=== PATIENT | male | born 1960 | race Caucasian/White ===

== ENCOUNTER → 2016-10-05 | Outpatient (CLI) | payer OTHER | END | disposition short-term general hospital (02) | LOC: CLORTH 10:02 | DX: S43.431D Superior glenoid labrum lesion of right shoulder, subsequent encounter (principal) ==

== ENCOUNTER → 2016-10-19 | Outpatient (CLI) | payer OTHER | END | disposition short-term general hospital (02) | LOC: CLORTH 09:19 | DX: S43.431D Superior glenoid labrum lesion of right shoulder, subsequent encounter (principal) ==

== ENCOUNTER → 2016-11-16 | Outpatient (CLI) | payer OTHER | END | disposition short-term general hospital (02) | LOC: CLORTH 12:52 | DX: S43.431D Superior glenoid labrum lesion of right shoulder, subsequent encounter (principal) ==

== ENCOUNTER → 2016-12-14 | Outpatient (CLI) | payer OTHER | END | disposition short-term general hospital (02) | LOC: CLORTH 03:09 | DX: S43.431D Superior glenoid labrum lesion of right shoulder, subsequent encounter (principal) ==